=== PATIENT | male | born 1965 | race Caucasian/White ===

== ENCOUNTER 2018-12-09 22:15 | Emergency (ER) | payer OTHER ==
[~2018-12-09] VITALS: Ht 188 cm; Wt 69.9 kg
--- NOTE | 2018-12-09 22:20 | NUR ---
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 FAMILY MEMBER AT BEDSIDE. PT IS A/OX4. BREATHING EVEN AND UNLABORED. PT PUT ON THE [employer]/CUSTODIAN AND PULSE OX.
[2018-12-09] MEDS ORDERED: DEXAMETHASONE SOD PHOSPHATE 10 MG/ML VIAL ONE (22:27)
[2018-12-09] MEDS ORDERED: HYDROMORPHONE 1 MG/1 ML DISP.SYRIN ONE (22:28)
[2018-12-09] MEDS ORDERED: CARISOPRODOL 350 MG TABLET ONE (22:28)
[2018-12-09] MEDS ORDERED: DEXAMETHASONE SOD PHOSPHATE 4 MG/ML VIAL IM ONE (22:30)
[2018-12-09] MEDS ORDERED: CARISOPRODOL 350 MG TABLET PO ONE (22:30)
[2018-12-09] MEDS ORDERED: HYDROMORPHONE 1 MG/1 ML DISP.SYRIN IM ONE (22:30)
--- NOTE | 2018-12-09 22:45 | NUR ---
PT TAKEN TO CT VIA [facility]
--- NOTE | 2018-12-09 22:59 | NUR ---
PT BACK FROM CT IN STABLE CONDITION
[2018-12-10 00:19] VITALS: BP 115/76
== END 2018-12-10 00:22 | disposition home or self-care (01) ==
LOC: ER 22:17
DX: S32.040A Wedge compression fracture of fourth lumbar vertebra, initial encounter for closed fracture (principal); X58.XXXA Exposure to other specified factors, initial encounter; Y93.89 Activity, other specified; Y92.89 Other specified places as the place of occurrence of the external cause; Y99.8 Other external cause status
CPT/HCPCS: 72131; 96372 ×2; 99284; J1100; J1170